=== PATIENT | male | born 1985 | race African-American/Black ===

== ENCOUNTER 2018-12-25 03:02 | Emergency (ER) | payer OTHER ==
--- NOTE | 2018-12-25 08:48 | RAD ---
CHEST 2 VIEWS: Date: 12/25/18 INDICATION: Cough. COMPARISON: None. FINDINGS: Lungs are clear. Cardiomediastinal silhouette is within normal limits. No acute osseous abnormality i s noted. IMPRESSION: No acute abnormality. POS: [facility]
== END 2018-12-25 04:09 | disposition home or self-care (01) ==
LOC: ERS 03:02
DX: K04.7 Periapical abscess without sinus (principal); R05 Cough; F17.210 Nicotine dependence, cigarettes, uncomplicated
CPT/HCPCS: 71046

== ENCOUNTER 2022-09-28 01:34 | Emergency (ER) | payer OTHER, SELFPAY | END 2022-09-28 03:45 | disposition home or self-care (01) | LOC: ERS 01:34 | DX: S16.1XXA Strain of muscle, fascia and tendon at neck level, initial encounter (principal); S50.12XA Contusion of left forearm, initial encounter; V89.2XXA Person injured in unspecified motor-vehicle accident, traffic, initial encounter | CPT/HCPCS: 70450; 71045; 72125; 72170 ==